=== PATIENT | female | born 1940 | race African-American/Black ===

== ENCOUNTER 2017-11-20 10:38 | Emergency (ER) | payer MEDICARE, OTHER ==
[~2017-11-20] VITALS: Ht 162.6 cm; Wt 91.0 kg
[~2017-11-20 10:38] MED LIST: PANT40TA4; SIMVASTATIN
[2017-11-20 10:45] VITALS: BP 143/89
[2017-11-20 14:29] LABS: CLARITY URINE CLEAR (CLEAR); COLOR URINE YELLOW (YELLOW); KETONES URINE NEGATIVE (NEGATIVE); LEUKOCYTE ESTERASE URINE NEGATIVE (NEGATIVE); NITRITE URINE NEGATIVE (NEGATIVE); OCCULT BLOOD URINE NEGATIVE (NEGATIVE); PH URINE 8.5 (4.5-8.0); PROTEIN URINE NEGATIVE (NEGATIVE); SPECIFIC GRAVITY URINE 1.015 (1.005-1.030)
== END 2017-11-20 14:49 | disposition home or self-care (01) ==
LOC: ER 12:27
DX: J30.2 Other seasonal allergic rhinitis (principal); H92.03 Otalgia, bilateral
CPT/HCPCS: 81003; 99283

== ENCOUNTER 2018-03-04 23:05 | Emergency (ER) | payer MEDICARE, OTHER ==
[~2018-03-04] VITALS: Ht 162.6 cm; Wt 91.0 kg
[2018-03-05 02:44] VITALS: BP 158/70
== END 2018-03-05 02:57 | disposition home or self-care (01) ==
LOC: ER 23:05
DX: S80.862A Insect bite (nonvenomous), left lower leg, initial encounter (principal); L29.9 Pruritus, unspecified; Z90.710 Acquired absence of both cervix and uterus; Z88.9 Allergy status to unspecified drugs, medicaments and biological substances; Z79.899 Other long term (current) drug therapy; Z85.3 Personal history of malignant neoplasm of breast; W57.XXXA Bitten or stung by nonvenomous insect and other nonvenomous arthropods, initial encounter; Y93.89 Activity, other specified; Y92.89 Other specified places as the place of occurrence of the external cause; Y99.8 Other external cause status
CPT/HCPCS: 99283